=== PATIENT | female | born 1980 | race Caucasian/White ===

== ENCOUNTER 2020-07-02 20:18 | Emergency (ER) | payer OTHER ==
[~2020-07-02] VITALS: Ht 167.6 cm; Wt 59.0 kg
[~2020-07-02 20:18] MED LIST: NOHOMEMEDICATIONS; ULTRAM 50MG TAB50 MG PO
[2020-07-02] MEDS ORDERED: NORCO 5-325 TA1 EAC2 PO (21:09)
[2020-07-02 21:32] VITALS: BP 129/87
== END 2020-07-02 21:33 | disposition home or self-care (01) ==
LOC: M.ERS 20:18
DX: S63.682A Other sprain of left thumb, initial encounter (principal); X50.9XXA Other and unspecified overexertion or strenuous movements or postures, initial encounter; Y93.89 Activity, other specified; Y92.89 Other specified places as the place of occurrence of the external cause; Y99.8 Other external cause status